=== PATIENT | female | born 1990 | race American Indian/Alaskan Native ===

== ENCOUNTER 2021-06-08 00:47 | Emergency (ER) | payer OTHER ==
[2021-06-08 01:04] VITALS: BP 154/82
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
== END 2021-06-08 02:45 | disposition home or self-care (01) ==
LOC: ED 00:47
DX: S29.012A Strain of muscle and tendon of back wall of thorax, initial encounter (principal); S16.1XXA Strain of muscle, fascia and tendon at neck level, initial encounter; F41.9 Anxiety disorder, unspecified; V87.7XXA Person injured in collision between other specified motor vehicles (traffic), initial encounter; Y93.89 Activity, other specified; Y92.89 Other specified places as the place of occurrence of the external cause; Y99.8 Other external cause status
CPT/HCPCS: 71046; 72040; 99283